=== PATIENT | female | born 1970 | race Caucasian/White ===

== ENCOUNTER → 2017-03-20 | Outpatient (CLI) | payer OTHER ==
[~2017-03-20] MED LIST: ACETAMINOPHEN-120 ML PO; ACTIVELLA 0.5-1 EACH PO; ADIPEX-P37.5 MG PO; AFRIN15 ML NASAL; ASPIRIN81 M2 PO; AUGMENTIN 875875 MG PO; B-12500 MCG PO; BACTRIM DS TAB1 EACH PO; BUPROPION XL300 MG PO; CALCIUM 1,0001 EACH PO; CALCIUM 600 +1 EA11 PO; CLONAZEPAM 1 MG1 M1 PO; DULCOLAX5 MG; ESTRACE0.5 MG PO; ESTRADIOL 1 MG T1 M1 PO; ESTRADIOL-NORE1 EAC2; FLEXERIL PO; FLUOXETINE HCL40 MG PO; HARD NAILS2500 MCG PO; IBUPROFEN 600600 M1 PO; IBUPROFEN 800800 M1 PO; IRON236 MG PO; IRON325 PO; LEVOTHYROXINE0.2 M1 PO; LISINOPRIL10 MG PO; MEDROL DOSPAK21 TAB PO; METFORMIN 500500 MG PO; MODAFINIL200 MG PO; NAPROSYN500 MG PO; NEURONTIN 300300 M1 PO; NORCO 5-325 TA1 EACH PO; NORFLEX100 MG PO; PHENERGAN 25 MG25 M1 PO; PREDNISONE 20 M20 M1 PO; PROAIR HFA8.5 GM IH; PROMETH-CODEIN 65 ML PO; PROMETHAZINE-C120 ML PO; PROVENTIL HFA6.7 G1 INH; PROZAC 10 MG CA10 M1 PO; PROZAC20 MG PO; SKELAXIN 800 M800 M1 PO; SYNTHROID125 MCG PO; SYNTHROID200 MCG PO; TESSALON PERLE100 MG PO; TOPAMAX 100 MG100 MG PO; TRAMADOL 50 MG50 MG PO; ULTRAM 50MG TAB50 MG PO; VALIUM2 MG PO; VALIUM5 MG PO; VENTOLIN HFA 1818 GM INH; VITAMIN D1000 UNI1 PO; WELLBUTRIN SR200 MG PO; WOMEN'S DAILY1 EAC4 PO; ZOFRAN ODT4 MG PO; ZPAK PO
== END ==
LOC: RAD 11:37
DX: Z12.31 Encounter for screening mammogram for malignant neoplasm of breast (principal)

== ENCOUNTER 2017-03-29 00:51 | Emergency (ER) | payer OTHER | END 2017-03-29 03:09 | disposition home or self-care (01) | LOC: ER 00:51 | DX: S39.012A Strain of muscle, fascia and tendon of lower back, initial encounter (principal); G47.30 Sleep apnea, unspecified; E66.9 Obesity, unspecified; F32.9 Major depressive disorder, single episode, unspecified; F41.9 Anxiety disorder, unspecified; Z68.35 Body mass index [BMI] 35.0-35.9, adult; Z90.89 Acquired absence of other organs; X58.XXXA Exposure to other specified factors, initial encounter; Y93.89 Activity, other specified; Y92.89 Other specified places as the place of occurrence of the external cause; Y99.8 Other external cause status ==

== ENCOUNTER 2017-07-26 08:26 | Emergency (ER) | payer OTHER ==
[~2017-07-26] VITALS: Ht 167.6 cm; Wt 99.8 kg
[2017-07-26 08:45] LABS: URINE BILIRUBIN NEGATIVE (Negative); URINE BLOOD TRACE (Negative); URINE COLOR YELLOW; URINE GLUCOSE-RANDOM* NEGATIVE (Negative); URINE KETONES NEGATIVE (Negative); URINE LEUKOCYTES-REFLEX NEGATIVE (Negative); URINE PROTEIN (DIPSTICK) NEGATIVE (Negative); URINE SPECIFIC GRAVITY 1.025 (1.005-1.035); URINE UROBILINOGEN 0.2 E.U./dl (0.2-1.0)
[2017-07-26 09:02] LABS: HEMATOCRIT 46.9 % (37.0-47.0); HEMOGLOBIN 16.2 gm/dL (12.0-15.0); MANUAL DIFF YES; MCH 31.2 pg (26.0-34.0); MCHC 34.4 g/dL (28.0-37.0); MCV 90.5 fL (80.0-100.0); PLATELET COUNT 234 thou/uL (150-400); RBC 5.18 mil/uL (4.20-5.00); RDW 13.6 % (10.5-14.5); WBC 15.1 thou/uL (4.0-11.0)
[2017-07-26 09:06] LABS: ANION GAP 10 mmol/L (7-16); BUN 16 mg/dL (7-18); CALCIUM 8.6 mg/dL (8.5-10.1); CHLORIDE 106 mmol/L (98-107); CO2 27 mmol/L (21-32); GLUCOSE 126 mg/dL (74-106); POTASSIUM 3.9 mmol/L (3.5-5.1); SODIUM 143 mmol/L (136-145)
[2017-07-26 09:12] LABS: ALBUMIN 3.4 g/dL (3.4-5.0); ALKALINE PHOSPHATASE 112 U/L (46-116); DIRECT BILIRUBIN < 0.1 mg/dL (<0.1-0.3); SGOT 20 U/L (15-37); SGPT 20 U/L (30-65); TOTAL BILIRUBIN 0.3 mg/dL (<0.1-1.0); TOTAL PROTEIN 7.4 g/dL (6.4-8.2)
[2017-07-26 09:29] LABS: ABSOLUTE NEUTROPHILS 12.8 thou/uL (1.4-8.2); PLATELET ESTIMATE NORMAL; TOTAL CELL COUNT 100
[2017-07-26] MEDS ORDERED: ZOFRAN ODT4 MG PO (11:03)
[2017-07-26] MEDS ORDERED: BENTYL 20 MG TA20 M1 PO (11:03)
== END 2017-07-26 11:33 | disposition home or self-care (01) ==
LOC: ER 08:26
PROVIDERS: Emergency Medicine
DX: R10.30 Lower abdominal pain, unspecified (principal); R10.31 Right lower quadrant pain; R19.7 Diarrhea, unspecified; R11.2 Nausea with vomiting, unspecified; G47.30 Sleep apnea, unspecified; E66.9 Obesity, unspecified; F32.9 Major depressive disorder, single episode, unspecified; F41.9 Anxiety disorder, unspecified; F17.210 Nicotine dependence, cigarettes, uncomplicated; Z85.89 Personal history of malignant neoplasm of other organs and systems; Z68.35 Body mass index [BMI] 35.0-35.9, adult; Z88.5 Allergy status to narcotic agent

== ENCOUNTER 2017-08-10 23:51 | Emergency (ER) | payer OTHER ==
[~2017-08-10] VITALS: Ht 167.6 cm; Wt 99.8 kg
[~2017-08-10 23:51] MED LIST changes: +BENTYL 20 MG TA20 M1 PO
[2017-08-11 01:11] VITALS: BP 136/106
[2017-08-11] MEDS ORDERED: PREDNISONE 20 M20 MG PO (01:12)
[2017-08-11] MEDS ORDERED: BENADRYL25 MG PO (01:12)
== END 2017-08-11 01:13 | disposition home or self-care (01) ==
LOC: ER 23:51
DX: L25.9 Unspecified contact dermatitis, unspecified cause (principal); F17.210 Nicotine dependence, cigarettes, uncomplicated; Z88.6 Allergy status to analgesic agent; Z98.890 Other specified postprocedural states

== ENCOUNTER 2017-09-08 16:08 | Emergency (ER) | payer OTHER ==
[~2017-09-08] VITALS: Ht 167.6 cm; Wt 131.5 kg
[~2017-09-08 16:08] MED LIST changes: +BENADRYL25 MG PO; +PREDNISONE 20 M20 MG PO
[2017-09-08 16:47] LABS: URINE BILIRUBIN NEGATIVE (Negative); URINE BLOOD NEGATIVE (Negative); URINE CLARITY CLEAR; URINE COLOR YELLOW; URINE GLUCOSE-RANDOM* NEGATIVE (Negative); URINE KETONES NEGATIVE (Negative); URINE LEUKOCYTES NEGATIVE (Negative); URINE NITRITE NEGATIVE (Negative); URINE PROTEIN (DIPSTICK) NEGATIVE (Negative); URINE SPECIFIC GRAVITY 1.015 (1.005-1.035); URINE UROBILINOGEN 0.2 E.U./dl (0.2-1.0)
[2017-09-08 16:52] LABS: ABSOLUTE NEUTROPHILS 6.7 thou/uL (1.4-8.2); BASOPHILS 0.3 % (0.0-2.0); EOSINOPHILS 1.7 % (0.0-3.0); HEMATOCRIT 41.3 % (37.0-47.0); HEMOGLOBIN 14.2 gm/dL (12.0-15.0); MCH 31.3 pg (26.0-34.0); MCHC 34.4 g/dL (28.0-37.0); PLATELET COUNT 263 thou/uL (150-400); RBC 4.54 mil/uL (4.20-5.00); RDW 13.6 % (10.5-14.5); WBC 11.8 thou/uL (4.0-11.0)
[2017-09-08 16:56] LABS: CALCIUM 8.9 mg/dL (8.5-10.1); CREATININE 0.9 mg/dL (0.6-1.0); POTASSIUM 3.4 mmol/L (3.5-5.1)
[2017-09-08 17:03] LABS: ALBUMIN 3.3 g/dL (3.4-5.0); TOTAL BILIRUBIN 0.2 mg/dL (<0.1-1.0); TOTAL PROTEIN 7.1 g/dL (6.4-8.2)
[2017-09-08] MEDS ORDERED: NORFLEX100 MG PO (17:09)
[2017-09-08] MEDS ORDERED: TRAMADOL 50 MG50 MG PO (17:09)
[2017-09-08 17:22] VITALS: BP 149/86
[2017-09-08] MEDS ORDERED: HYDROCODONE-AP1 EAC6 PO (17:34)
== END 2017-09-08 17:38 | disposition home or self-care (01) ==
LOC: ER 16:08
PROVIDERS: Nurse Practitioner Family
DX: M54.32 Sciatica, left side (principal); E89.0 Postprocedural hypothyroidism; G47.30 Sleep apnea, unspecified; F41.9 Anxiety disorder, unspecified; F32.9 Major depressive disorder, single episode, unspecified; F17.210 Nicotine dependence, cigarettes, uncomplicated; E66.9 Obesity, unspecified; Z68.42 Body mass index [BMI] 45.0-49.9, adult; Z88.6 Allergy status to analgesic agent

== ENCOUNTER 2017-10-13 00:14 | Emergency (ER) | payer OTHER ==
[~2017-10-13] VITALS: Ht 167.6 cm; Wt 99.8 kg
[~2017-10-13 00:14] MED LIST changes: +HYDROCODONE-AP1 EAC6 PO
[2017-10-13 00:18] VITALS: BP 138/89
[2017-10-13] MEDS ORDERED: TRAMADOL 50 MG50 MG PO (01:12)
[2017-10-13] MEDS ORDERED: NAPROSYN500 MG PO (01:12)
== END 2017-10-13 01:49 | disposition home or self-care (01) ==
LOC: ER 00:14
DX: S80.01XA Contusion of right knee, initial encounter (principal); S60.221A Contusion of right hand, initial encounter; S20.211A Contusion of right front wall of thorax, initial encounter; F17.210 Nicotine dependence, cigarettes, uncomplicated; Z88.5 Allergy status to narcotic agent; W01.0XXA Fall on same level from slipping, tripping and stumbling without subsequent striking against object, initial encounter; Y93.89 Activity, other specified; Y92.89 Other specified places as the place of occurrence of the external cause; Y99.8 Other external cause status

== ENCOUNTER 2018-01-01 16:05 | Emergency (ER) | payer OTHER ==
[~2018-01-01] VITALS: Ht 167.6 cm; Wt 104.3 kg
[2018-01-01 16:36] LABS: URINE BILIRUBIN NEGATIVE (Negative); URINE BLOOD TRACE (Negative); URINE CLARITY CLEAR; URINE COLOR YELLOW; URINE GLUCOSE-RANDOM* NEGATIVE (Negative); URINE KETONES NEGATIVE (Negative); URINE LEUKOCYTES NEGATIVE (Negative); URINE NITRITE NEGATIVE (Negative); URINE PROTEIN (DIPSTICK) NEGATIVE (Negative); URINE UROBILINOGEN 0.2 E.U./dl (0.2-1.0)
[2018-01-01 16:48] LABS: ABSOLUTE NEUTROPHILS 7.6 thou/uL (1.4-8.2); BASOPHILS 0.6 % (0.0-2.0); EOSINOPHILS 1.4 % (0.0-3.0); HEMATOCRIT 44.5 % (37.0-47.0); HEMOGLOBIN 15.1 gm/dL (12.0-15.0); LYMPHOCYTES 27.8 % (24.0-44.0); MCH 29.9 pg (26.0-34.0); MONOCYTES 4.5 % (1.0-8.0); PLATELET COUNT 296 thou/uL (150-400); POLYS 65.7 % (36.0-66.0); RBC 5.05 mil/uL (4.20-5.00); WBC 11.6 thou/uL (4.0-11.0)
[2018-01-01 16:57] LABS: CALCIUM 9.3 mg/dL (8.5-10.1); CREATININE 0.8 mg/dL (0.6-1.0); POTASSIUM 3.8 mmol/L (3.5-5.1)
[2018-01-01 17:02] LABS: ALBUMIN 3.5 g/dL (3.4-5.0); TOTAL BILIRUBIN 0.3 mg/dL (<0.1-1.0); TOTAL PROTEIN 7.6 g/dL (6.4-8.2)
[2018-01-01] MEDS ORDERED: ZOFRAN ODT4 MG PO (20:55)
== END 2018-01-01 21:00 | disposition home or self-care (01) ==
LOC: ER 16:05
PROVIDERS: Emergency Medicine
DX: R11.2 Nausea with vomiting, unspecified (principal); R19.7 Diarrhea, unspecified; R10.30 Lower abdominal pain, unspecified; R51 Headache; G47.30 Sleep apnea, unspecified; E66.9 Obesity, unspecified; F32.9 Major depressive disorder, single episode, unspecified; F41.9 Anxiety disorder, unspecified; F17.210 Nicotine dependence, cigarettes, uncomplicated; Z88.5 Allergy status to narcotic agent; Z68.37 Body mass index [BMI] 37.0-37.9, adult

== ENCOUNTER 2018-10-02 19:39 | Emergency (ER) | payer OTHER ==
[~2018-10-02] VITALS: Ht 167.6 cm; Wt 104.3 kg
[2018-10-02 20:06] LABS: URINE BILIRUBIN NEGATIVE (Negative); URINE BLOOD NEGATIVE (Negative); URINE CLARITY CLEAR; URINE COLOR YELLOW; URINE GLUCOSE-RANDOM* NEGATIVE (Negative); URINE KETONES NEGATIVE (Negative); URINE LEUKOCYTES-REFLEX NEGATIVE (Negative); URINE NITRITE-REFLEX NEGATIVE (Negative); URINE PROTEIN (DIPSTICK) NEGATIVE (Negative); URINE UROBILINOGEN 0.2 E.U./dl (0.2-1.0)
[2018-10-02 20:06] LABS: ABSOLUTE NEUTROPHILS 5.5 thou/uL (1.4-8.2); BASOPHILS 0.1 % (0.0-2.0); EOSINOPHILS 2.9 % (0.0-3.0); HEMATOCRIT 41.1 % (37.0-47.0); LYMPHOCYTES 38.8 % (24.0-44.0); MCV 88.1 fL (80.0-100.0); MONOCYTES 7.3 % (1.0-8.0); PLATELET COUNT 243 thou/uL (150-400); POLYS 50.9 % (36.0-66.0); RBC 4.66 mil/uL (4.20-5.00); RDW 13.4 % (10.5-14.5); WBC 10.8 thou/uL (4.0-11.0)
[2018-10-02 20:12] LABS: CREATININE 0.7 mg/dL (0.6-1.0); POTASSIUM 3.4 mmol/L (3.5-5.1)
[2018-10-02] MEDS ORDERED: ESTRADIOL 1 MG T1 M1 PO (20:13)
[2018-10-02] MEDS ORDERED: PRINIVIL5 MG PO (20:13)
[2018-10-02] MEDS ORDERED: MOBIC7.5 MG PO (21:00)
[2018-10-02 21:38] VITALS: BP 128/78
== END 2018-10-02 21:39 | disposition home or self-care (01) ==
LOC: ER 19:39
PROVIDERS: Nurse Practitioner
DX: R10.9 Unspecified abdominal pain (principal); F41.9 Anxiety disorder, unspecified; F32.9 Major depressive disorder, single episode, unspecified; G47.30 Sleep apnea, unspecified; E66.9 Obesity, unspecified; Z68.37 Body mass index [BMI] 37.0-37.9, adult; E89.0 Postprocedural hypothyroidism; Z90.5 Acquired absence of kidney

== ENCOUNTER → 2018-11-19 | Outpatient (CLI) | payer OTHER ==
[~2018-11-19] MED LIST changes: +MOBIC7.5 MG PO; +PRINIVIL5 MG PO
== END ==
LOC: RAD 10:55
DX: Z12.31 Encounter for screening mammogram for malignant neoplasm of breast (principal)

== ENCOUNTER → 2018-11-20 | Outpatient (CLI) | payer OTHER | LOC: ULTRA 12:59 | DX: N63.20 Unspecified lump in the left breast, unspecified quadrant (principal) ==

== ENCOUNTER 2018-12-24 21:32 | Emergency (ER) | payer OTHER ==
[~2018-12-24] VITALS: Ht 165.1 cm; Wt 104.3 kg
[2018-12-24] MEDS ORDERED: SYNTHROID125 MC1 PO (21:53)
[2018-12-24] MEDS ORDERED: NEURONTIN 300300 M1 PO (21:54)
[2018-12-24] MEDS ORDERED: HYDROXYZINE HCL25 M1 PO (21:57)
[2018-12-24] MEDS ORDERED: LIPITOR10 MG PO (21:58)
[2018-12-24] MEDS ORDERED: VITAMIN D1000 UNI1 PO (22:01)
[2018-12-24 22:03] LABS: ABSOLUTE NEUTROPHILS 7.8 thou/uL (1.4-8.2); BASOPHILS 0.1 % (0.0-2.0); EOSINOPHILS 2.4 % (0.0-3.0); HEMATOCRIT 39.7 % (37.0-47.0); HEMOGLOBIN 13.8 gm/dL (12.0-15.0); LYMPHOCYTES 30.4 % (24.0-44.0); MCH 30.4 pg (26.0-34.0); MCHC 34.7 g/dL (28.0-37.0); MCV 87.6 fL (80.0-100.0); MONOCYTES 7.3 % (1.0-8.0); PLATELET COUNT 259 thou/uL (150-400); POLYS 59.8 % (36.0-66.0); RBC 4.53 mil/uL (4.20-5.00); RDW 13.7 % (10.5-14.5); WBC 13.1 thou/uL (4.0-11.0)
[2018-12-24 22:04] LABS: ANION GAP 9 mmol/L (7-16); BUN 10 mg/dL (7-18); CALCIUM 8.1 mg/dL (8.5-10.1); CHLORIDE 106 mmol/L (98-107); CO2 26 mmol/L (21-32); CREATININE 0.7 mg/dL (0.6-1.0); GLUCOSE 114 mg/dL (74-106); POTASSIUM 3.7 mmol/L (3.5-5.1); SODIUM 141 mmol/L (136-145)
[2018-12-24 22:14] LABS: SGOT 14 U/L (15-37); SGPT 14 U/L (30-65); TOTAL BILIRUBIN 0.2 mg/dL (<0.1-1.0); TOTAL PROTEIN 6.9 g/dL (6.4-8.2); TROPONIN-I <0.06 ng/mL (<0.06)
[2018-12-25] MEDS ORDERED: ZPAK PO (01:04)
[2018-12-25 01:18] VITALS: BP 129/73
--- NOTE | 2018-12-25 09:37 | EKG ---
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 : 1970 Requested By: Wilmer Loo Order Number: [id number] MD: Mannie Sanchez Measurements Intervals [place] Rate: 103 P: 15 CT: 163 QRS: -7 QRSD: 87 T: 23 QT: 351 QTc: 460 Interpretive Statements Sinus tachycardia Compared to ECG 10/07/2014 13:14:06 Sinus rhythm no longer present Electronically Signed On 12-25-2018 9:37:20 CDT by Mannie Sanchez [email or web address] ��������������������������������������������� <ELECTRONICALLY SIGNED> ���������������������������������������� By: Mannie Sanchez MD ��������������������������������������������� 12/25/18 0937 2139 2139 Mannie Sanchez MD /GUCCI
== END 2018-12-25 01:28 | disposition home or self-care (01) ==
LOC: ER 21:32
PROVIDERS: Physician Assistant
DX: J18.0 Bronchopneumonia, unspecified organism (principal); F17.210 Nicotine dependence, cigarettes, uncomplicated; G47.30 Sleep apnea, unspecified; F32.9 Major depressive disorder, single episode, unspecified; F41.9 Anxiety disorder, unspecified; E66.9 Obesity, unspecified; Z68.38 Body mass index [BMI] 38.0-38.9, adult; Z88.5 Allergy status to narcotic agent; Z90.89 Acquired absence of other organs; Z90.5 Acquired absence of kidney

== ENCOUNTER 2019-09-17 17:25 | Inpatient (IN) | payer OTHER ==
[~2019-09-17] VITALS: Ht 167.6 cm; Wt 113.4 kg
[2019-09-17 17:25] VITALS: BP 137/93
[~2019-09-17 17:25] MED LIST changes: +HYDROXYZINE HCL25 M1 PO; +LIPITOR10 MG PO; +SYNTHROID125 MC1 PO
[2019-09-17] MEDS ORDERED: DOXYCYCLINE 10100 M2 PO (17:40)
[2019-09-17 18:16] LABS: ABSOLUTE NEUTROPHILS 8.4 thou/uL (1.4-8.2); BASOPHILS 0.5 % (0.0-2.0); HEMATOCRIT 42.9 % (37.0-47.0); HEMOGLOBIN 14.2 gm/dL (12.0-15.0); LYMPHOCYTES 18.1 % (24.0-44.0); MCH 30.5 pg (26.0-34.0); MCHC 33.2 g/dL (28.0-37.0); MCV 91.9 fL (80.0-100.0); MONOCYTES 4.9 % (1.0-8.0); PLATELET COUNT 233 thou/uL (150-400); POLYS 76.5 % (36.0-66.0); RBC 4.67 mil/uL (4.20-5.00); RDW 14.7 % (10.5-14.5)
[2019-09-17 18:27] LABS: CREATININE 0.8 mg/dL (0.6-1.0); POTASSIUM 4.1 mmol/L (3.5-5.1)
[2019-09-17 18:32] LABS: ALBUMIN 3.1 g/dL (3.4-5.0); TOTAL BILIRUBIN 0.2 mg/dL (<0.1-1.0); TOTAL PROTEIN 7.8 g/dL (6.4-8.2)
[2019-09-17 20:51] VITALS: BP 128/69
[2019-09-17 21:05] VITALS: BP 150/92
[2019-09-17 21:15] VITALS: BP 147/58
--- NOTE | 2019-09-18 05:18 | NUR ---
New pt from the ER admitted with a positive test for PNA and the flu. pt is a&ox4. adlib in room. droplet prec initated. pt getting scheduled neb treatments and cough medicine. no c/o of pain or nausea. no s/s of distress. will cont to monitor
[2019-09-18 08:00] VITALS: BP 132/86
[2019-09-18 11:10] VITALS: BP 119/69
[2019-09-18 15:15] VITALS: BP 105/67
--- NOTE | 2019-09-18 20:24 | NUR ---
Assumed patient care at 0715. Vital signs have been stable. She has been given prn medications for anxiety, non-cardiac chest pain and cough with noted relief. Noraml Saline continues at 100cc/hr. Patient noted to have swollen lymph nodes late this afternoon (she complained of "pain" in this area during bedside report to on-coming nurse). Patient had a Student Nurse as well until late afternoon. Appetite is good. IV Antibiotics continue without adverse reactions. Report given to on-coming nurse.
[2019-09-18 20:37] VITALS: BP 115/72
--- NOTE | 2019-09-19 06:48 | NUR ---
pt remained to be uncomfortable and "feeling not well" for the first half of the shift. pt stated she thinks she might have a thrust in her mouth. meds given and pt tolerated well. pt was able to get some rest after midnight. droplet prec in place. reports off to day shift
[2019-09-19 08:00] VITALS: BP 126/88
[2019-09-19 08:39] LABS: HEMATOCRIT 40.1 % (37.0-47.0); MCH 30.3 pg (26.0-34.0); MCHC 32.5 g/dL (28.0-37.0); MCV 93.5 fL (80.0-100.0); RBC 4.3 mil/uL (4.20-5.00); RDW 14.7 % (10.5-14.5); WBC 6.6 thou/uL (4.0-11.0)
[2019-09-19 08:48] LABS: CALCIUM 7.9 mg/dL (8.5-10.1); CREATININE 0.8 mg/dL (0.6-1.0); POTASSIUM 3.7 mmol/L (3.5-5.1)
[2019-09-19 12:05] VITALS: BP 129/82
[2019-09-19 15:00] VITALS: BP 150/94
--- NOTE | 2019-09-19 16:32 | NUR ---
Assumed care ot pt at 1530. Pt a&ox4. States she feels a bit better and her breathing has improved. Neg for influenza A&B. Family at bedside. Call light within reach.
[2019-09-19 19:33] VITALS: BP 117/65
--- NOTE | 2019-09-19 20:13 | NUR ---
Received awake on bed. Due medications given as prescribed, able to swallow meds. A+Ox4. Vital signs stable. Maintained on isolation due to flu, a/w results from flu swab done. On room air, on regular breathing treatments. On regular diet, tolerating well; no nausea, no vomiting and no abdominal pain noted. With NS at 100cc/hr, infusing well on R AC- intact. Up ad bia, independent with ADLs, makes needs known. Complained of pain, due PRN pain medications given as prescribed, with congested cough noted as well- PRN guafenesin given as prescribed. Pt complained of lesions and thrush on her mouth- Dr Florian informed during his rounds this morning- nystatin added on her medications, given as prescribed. Visited by relatives today. To continue monitoring patient.
--- NOTE | 2019-09-20 02:55 | NUR ---
Assumed pt care @191. pt sleeping better tonight after getting her night time meds. no s/s of distress. will cont to monitor
[2019-09-20 08:46] VITALS: BP 138/93
--- NOTE | 2019-09-20 15:37 | NUR ---
Received awake on bed. Due medication given as prescribed, able to swallow meds w/o difficulty. On room air, on regular breathing treatments. Vital signs stable. On regular diet- tolerating well; no nausea, no vomiting and no abdominal pain noted. With SL at L AC- intact, on IV antibiotics. Complained of pain, due PRN pain medication given as prescribed- resited to R hand. Up ad bia, independent in ADLs, calls appropriately. A+Ox4. Maintained on isolation due to Influenza. PRN cough meds given as prescribed. To continue monitoring patient.
[2019-09-20 19:40] VITALS: BP 135/88
--- NOTE | 2019-09-21 03:07 | NUR ---
ASSUMED PT CARE AROUND 1930. AXOX3. PERSISTENT COUGH AND PAIN FROM COUGHING. MEDS GIVEN PER MD ORDER. NO S/S ACUTE DISTRESS NOTED OR REPORTED AT THIS TIME. WILL CONT TO MONITOR FOR ANY CHANGES IN CONDITION.
[2019-09-21 09:35] VITALS: BP 122/69
[2019-09-21 12:40] LABS: URINE BILIRUBIN NEGATIVE (Negative); URINE BLOOD NEGATIVE (Negative); URINE CLARITY CLEAR; URINE COLOR YELLOW; URINE GLUCOSE-RANDOM* NEGATIVE (Negative); URINE KETONES NEGATIVE (Negative); URINE LEUKOCYTES-REFLEX TRACE (Negative); URINE NITRITE-REFLEX NEGATIVE (Negative); URINE PROTEIN (DIPSTICK) NEGATIVE (Negative); URINE SPECIFIC GRAVITY <= 1.005 (1.005-1.035); URINE UROBILINOGEN 0.2 E.U./dl (0.2-1.0)
[2019-09-21 15:00] VITALS: BP 124/84
[2019-09-21 19:28] VITALS: BP 114/70
--- NOTE | 2019-09-22 02:42 | NUR ---
PT IS A/O X4.PT CARE ASSUMED WITH PT WATCHING TV.PT IS UP AND TARSHA.PT IS ON PRN COUGH SYRUP Q4H AND TRAMADOL PRN Q4H.PT IS ON ROOM AIR AND BREATHING TREATMENT.PT IS ON ISOLATION;DROPLET PRECAUTION FOR INFLUENZA.WILL CONTINUE TO MONITOR TILL EOS
[2019-09-22 07:35] VITALS: BP 126/85
--- NOTE | 2019-09-22 10:47 | NUR ---
PATIENT REPORTS PAIN IN CHEST, NON CARDIAC, PHYSICIAN AWARE. PAIN MEDICATION ADMINISTERED ORDERED. PATIENT RESTING WITH EYES CLOSED ON REASSESSMENT. PATIENT EXPRESSES DESIRE TO DISCHARGE HOME TODAY. UP AD TARSHA WITH STEADY BALANCED GAIT. DENIES OTHER NEEDS AT THIS TIME, NO S/S OF DISTRESS NOTED.
[2019-09-22] MEDS ORDERED: NYSTATIN100000 UNI SWISH&SPIT (11:30)
[2019-09-22] MEDS ORDERED: LEVAQUIN 500 M500 M1 PO (11:30)
[2019-09-22] MEDS ORDERED: GUAIFEN-CODEINE10 ML PO (11:31)
[2019-09-22 11:50] VITALS: BP 126/85
[2019-09-22 12:01] VITALS: BP 126/85
== END 2019-09-22 14:44 | disposition home or self-care (01) | DRG 202 ==
LOC: ER 17:25 → EROBS 20:04 → 4W 20:04
PROVIDERS: Internal Medicine; Physician Assistant; ADMIT Family Medicine
DX: J20.9 Acute bronchitis, unspecified (principal); J11.00 Influenza due to unidentified influenza virus with unspecified type of pneumonia; J45.901 Unspecified asthma with (acute) exacerbation; Z68.41 Body mass index [BMI] 40.0-44.9, adult; B37.9 Candidiasis, unspecified; E89.0 Postprocedural hypothyroidism; E66.9 Obesity, unspecified; F32.9 Major depressive disorder, single episode, unspecified; F41.9 Anxiety disorder, unspecified; F17.210 Nicotine dependence, cigarettes, uncomplicated; I10 Essential (primary) hypertension; Z79.899 Other long term (current) drug therapy; Z88.6 Allergy status to analgesic agent
CPT/HCPCS: 10040; 10045

== ENCOUNTER → 2020-01-05 | Outpatient (CLI) | payer OTHER ==
[~2020-01-05] MED LIST changes: +DOXYCYCLINE 10100 M2 PO; +GUAIFEN-CODEINE10 ML PO; +LEVAQUIN 500 M500 M1 PO; +NYSTATIN100000 UNI SWISH&SPIT
== END ==
LOC: BC 08:18
DX: Z12.31 Encounter for screening mammogram for malignant neoplasm of breast (principal)

== ENCOUNTER 2020-07-27 21:54 | Emergency (ER) | payer OTHER ==
[2020-07-27 22:26] VITALS: BP 0/0
== END 2020-07-27 22:28 | disposition left against medical advice (07) ==
LOC: ER 21:54
DX: J02.9 Acute pharyngitis, unspecified (principal); H57.89 Other specified disorders of eye and adnexa; Z53.21 Procedure and treatment not carried out due to patient leaving prior to being seen by health care provider

== ENCOUNTER 2020-10-17 23:53 | Emergency (ER) | payer OTHER ==
[~2020-10-17] VITALS: Ht 167.6 cm; Wt 106.6 kg
[2020-10-18 01:30] LABS: ABSOLUTE NEUTROPHILS 4.7 thou/uL (1.4-8.2); BASOPHILS 0.9 % (0.0-2.0); EOSINOPHILS 3.4 % (0.0-3.0); HEMATOCRIT 40.4 % (37.0-47.0); HEMOGLOBIN 13.4 gm/dL (12.0-15.0); LYMPHOCYTES 42.2 % (24.0-44.0); MCH 29.8 pg (26.0-34.0); MCV 90.1 fL (80.0-100.0); MONOCYTES 7.3 % (1.0-8.0); PLATELET COUNT 234 thou/uL (150-400); POLYS 46.2 % (36.0-66.0); RBC 4.49 mil/uL (4.20-5.00); RDW 14.3 % (10.5-14.5); WBC 10.2 thou/uL (4.0-11.0)
[2020-10-18 01:41] LABS: CALCIUM 8.4 mg/dL (8.5-10.1); CREATININE 0.8 mg/dL (0.6-1.0); POTASSIUM 3.5 mmol/L (3.5-5.1)
[2020-10-18] MEDS ORDERED: NAPROSYN500 MG PO (02:12)
[2020-10-18 02:19] VITALS: BP 133/84
== END 2020-10-18 02:20 | disposition home or self-care (01) ==
LOC: ER 23:53
PROVIDERS: Emergency Medicine
DX: M79.604 Pain in right leg (principal); F17.210 Nicotine dependence, cigarettes, uncomplicated; Z79.2 Long term (current) use of antibiotics; Z79.899 Other long term (current) drug therapy; Z88.5 Allergy status to narcotic agent

== ENCOUNTER 2021-01-08 16:25 | Emergency (ER) | payer OTHER ==
[~2021-01-08] VITALS: Ht 167.6 cm; Wt 104.3 kg
[2021-01-08 17:01] LABS: URINE BILIRUBIN NEGATIVE (Negative); URINE BLOOD NEGATIVE (Negative); URINE CLARITY CLEAR; URINE COLOR YELLOW; URINE GLUCOSE-RANDOM* NEGATIVE (Negative); URINE KETONES NEGATIVE (Negative); URINE NITRITE-REFLEX NEGATIVE (Negative); URINE PROTEIN (DIPSTICK) NEGATIVE (Negative); URINE UROBILINOGEN 0.2 E.U./dl (0.2-1.0)
[2021-01-08 17:04] LABS: URINE LEUKOCYTES-REFLEX 1+ (Negative)
[2021-01-08 17:15] LABS: CASTS None Seen /LPF (None Seen); SQUAMOUS 4-10 Moderate /LPF (0-3)
[2021-01-08 17:15] LABS: ABSOLUTE NEUTROPHILS 6.4 thou/uL (1.4-8.2); BASOPHILS 1.9 % (0.0-2.0); EOSINOPHILS 2.8 % (0.0-3.0); HEMATOCRIT 39.4 % (37.0-47.0); HEMOGLOBIN 13.2 gm/dL (12.0-15.0); MCH 30.5 pg (26.0-34.0); MCHC 33.5 g/dL (28.0-37.0); MCV 91.1 fL (80.0-100.0); MONOCYTES 6.6 % (1.0-8.0); PLATELET COUNT 278 thou/uL (150-400); POLYS 54.7 % (36.0-66.0); RBC 4.33 mil/uL (4.20-5.00); RDW 13.2 % (10.5-14.5); WBC 11.8 thou/uL (4.0-11.0)
[2021-01-08 17:16] LABS: CRYSTALS None Seen /LPF (None Seen); URINE RBC None Seen /HPF (NONE SEEN); URINE WBC-REFLEX 6-15 Few /HPF (0-5)
[2021-01-08 17:23] LABS: ANION GAP 5 mmol/L (7-16); BUN 17 mg/dL (7-18); CHLORIDE 105 mmol/L (98-107); CO2 29 mmol/L (21-32); CREATININE 1.2 mg/dL (0.6-1.0); GLUCOSE 113 mg/dL (74-106); POTASSIUM 3.7 mmol/L (3.5-5.1); SODIUM 139 mmol/L (136-145)
[2021-01-08 17:29] LABS: ALBUMIN 3.1 g/dL (3.4-5.0); AMYLASE 34 U/L (25-115); DIRECT BILIRUBIN < 0.1 mg/dL (<0.1-0.2); LIPASE 95 U/L (73-393); SGOT 18 U/L (15-37); SGPT 20 U/L (14-59); TOTAL BILIRUBIN 0.3 mg/dL (0.2-1.0); TOTAL PROTEIN 6.9 g/dL (6.4-8.2)
[2021-01-08] MEDS ORDERED: MEDROLDOSEPACK PO (19:06)
[2021-01-08 19:28] VITALS: BP 115/68
--- NOTE | 2021-01-09 11:39 | EKG ---
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 : 1970 Requested By: Rios Mccauley Order Number: [id number] MD: Jovany Mirza Measurements Intervals [place] Rate: 74 P: 16 SC: 170 QRS: -2 QRSD: 102 T: 21 QT: 421 QTc: 467 Interpretive Statements Sinus rhythm Normal tracing Compared to ECG 12/24/2018 21:39:28 Sinus tachycardia no longer present Electronically Signed On 01-09-2021 11:38:56 CDT by Jovany Mirza [email or web address] <ELECTRONICALLY SIGNED> By: Jovany Mirza MD, [facility] 01/09/21 1138 1724 1724 Jovany Mirza MD, [facility] /EPI
== END 2021-01-08 19:36 | disposition home or self-care (01) ==
LOC: ER 16:25
PROVIDERS: Emergency Medicine
DX: K80.80 Other cholelithiasis without obstruction (principal); E66.9 Obesity, unspecified; F17.210 Nicotine dependence, cigarettes, uncomplicated; Z68.37 Body mass index [BMI] 37.0-37.9, adult; Z90.89 Acquired absence of other organs; Z88.5 Allergy status to narcotic agent